=== PATIENT | female | born 1995 | race Caucasian/White ===

== ENCOUNTER 2020-02-05 12:41 | Emergency (ER) | payer BC ==
--- NOTE | 2020-02-05 13:16 | TELE ---
HPI Do you have fever,cough or shortness of breath?: Yes - General Reason For Visit: COVID 19 Time Seen by Provider: 02/05/20 13:13 History Source: Patient Exam Limitations: Clinical Condition - History of Present Illness Timing/Duration: unsure Associated Symptoms: reports: denies symptoms 02/05/20 13:13 Patient with no significant past medical history present to [facility] urgent care for COVID testing status post sibling testing positive for COVID. Patient report has no symptoms herself. Denies fever, cough, shortness of breath, chest pain. Denies recent travel. Patient has not taken anything for symptoms. Denies any other symptoms Past History - Medical History Allergies/Adverse Reactions: Allergies Allergy/AdvReac Type Severity Reaction Status Date / Time No Known Drug Allergies Allergy Verified 08/23/15 13:48 Home Medications: Ambulatory Orders Norgestimate-Ethinyl Estradiol [Trinessa Tablet] 1 each PO DAILY 08/23/15 Anemia: No Asthma: No Cancer: No Cardiac Disorders: No CVA: No COPD: No CHF: No Dementia: No Diabetes: No GI Disorders: Yes (C/O STOMACH PAIN;NAUSEA) Disorders: No HTN: No Hypercholesterolemia: No Liver Disease: No Seizures: No Thyroid Disease: No - Surgical History Abdominal Surgery: No Appendectomy: No Cardiac Surgery: No Cholecystectomy: No Lung Surgery: No Neurologic Surgery: No Orthopedic Surgery: No - Psycho-Social/Smoking History Smoking History: Current some day smoker Have you smoked in the past 12 months: Yes Number of Cigarettes Smoked Daily: 0 Review of Systems - Review of Systems Able to Perform ROS?: Yes Limited Spanish proficient: No Constitutional: No: Chills, Fever, Malaise HEENTM: No: Symptoms Reported, See HPI, Eye Pain, Blurred Vision, Tearing, Recent change in vision, Double Vision, Cataracts, Ear Pain, Ocular Prothesis, Ear Discharge, Nose Pain, Nose Congestion, Tinnitus, Nose Bleeding, Hearing Loss, Throat Pain, Throat Swelling, Mouth Pain, Dental Problems, Difficulty Swallowing, Mouth Swelling, Other Respiratory: No: Symptoms reported, See HPI, Cough, Orthopnea, Shortness of Breath, SOB with Exertion, SOB at Rest, Stridor, Wheezing, Productive cough, Hemoptysis, Other Cardiac (ROS): No: Symptoms Reported, See HPI, Chest Pain, Edema, Irregular Heart Rate, Lightheadedness, Palpitations, Syncope, Chest Tightness, Other ABD/GI: Yes: Symptoms Reported. No: Nausea, Vomiting Integumentary: No: Symptoms Reported Neurological: No: Symptoms reported All Other Systems: Reviewed and Negative *Physical Exam - Physical Exam General Appearance: Yes: Nourished, Appropriately Dressed. No: Apparent Distress HEENT: positive: Normal ENT Inspection, Pharynx Normal Respiratory/Chest: negative: Respiratory Distress, Accessory Muscle Use Musculoskeletal: positive: Normal Inspection Extremity: positive: Normal Inspection, Normal Range of Motion Integumentary: positive: Normal Color Neurologic: positive: Fully Oriented, Alert, Normal Mood/Affect, Normal Response, Motor Strength 10/19 - Medical Decision Making 02/05/20 13:14 Patient with no significant past medical history present to [facility] for COVID testing status post sibling testing positive for COVID. Patient report has no symptoms herself. Denies fever, cough, shortness of breath, chest pain. Denies recent travel. Patient has not taken anything for symptoms. Denies any other symptoms Clinical exam was normal with patient in no acute respiratory distress. Patient afebrile at this time. Discussed with patient self quarantine instructions until negative COVID results or at least 4-week. Patient will go to [place] [facility] today for COVID testing. Patient stable for discharge Discharge Diagnosis at time of Disposition: Encounter by telehealth for suspected COVID-19 - Referrals - Patient Instructions Discharge Instructions: [facility] Instructions, [facility] COVID-19 Isolation Protocol - Discharge Disposition: HOME Condition at time of Disposition: Stable
== END 2020-02-05 13:16 | disposition home or self-care (01) ==
LOC: JVIRT 12:41
DX: U07.1 COVID-19 (principal)
CPT/HCPCS: 36415; 86769; Q3014-GT; U0003